=== PATIENT | male | born 1955 | race Caucasian/White ===

== ENCOUNTER 2023-06-12 11:05 | Outpatient (CLI) | payer MEDICARE, BC, SELFPAY | END 2023-06-12 11:06 | disposition home or self-care (01) | LOC: KYNREF 11:06 | PROVIDERS: PCP Family Medicine; Visit Provider Nurse Practitioner Family | DX: I10 Essential (primary) hypertension (principal) | CPT/HCPCS: 85025 ==

== ENCOUNTER 2024-07-21 13:48 | Outpatient (CLI) | payer MEDICARE, BC, SELFPAY | END 2024-07-21 13:49 | disposition home or self-care (01) | PROVIDERS: PCP Family Medicine; Visit Provider Family Medicine | DX: E87.6 Hypokalemia (principal) | CPT/HCPCS: 80048; 83735 ==

== ENCOUNTER 2024-10-05 12:22 | Outpatient (CLI) | payer MEDICARE, BC, SELFPAY | END 2024-10-05 12:23 | disposition home or self-care (01) | PROVIDERS: PCP Family Medicine; Visit Provider Family Medicine | DX: R06.09 Other forms of dyspnea (principal); R53.1 Weakness | CPT/HCPCS: A0425; A0427 ==